=== PATIENT | female | born 1995 | race Caucasian/White ===

== ENCOUNTER 2017-09-10 20:27 | Emergency (ER) | END 2017-09-11 00:19 | disposition home or self-care (01) ==

== ENCOUNTER 2017-09-16 00:24 | Emergency (ER) | END 2017-09-16 05:58 | disposition home or self-care (01) ==

== ENCOUNTER 2017-09-20 15:13 | Emergency (ER) | END 2017-09-20 17:27 | disposition home or self-care (01) ==